=== PATIENT | male | born 1980 | race Caucasian/White ===

== ENCOUNTER 2022-02-20 09:17 | Emergency (ER) | payer OTHER, SELFPAY ==
[2022-02-20 09:35] VITALS: BP 132/82; PULSE 108; RESP 16; TEMP 36.9; O2SAT 99
--- NOTE | 2022-02-20 09:47 | ED.SKABFB ---
HPI - Skin/Abscess/Foreign Bdy General Chief complaint: Skin/Abscess/Foreign Body Stated complaint: rash/cyst Time Seen by Provider: 02/20/22 09:47 Source: patient and RN notes reviewed Mode of arrival: ambulatory Limitations: no limitations History of Present Illness HPI narrative: 41-year-old male presents to the [facility] with pain, redness, warmth and swelling to the gluteal cleft that he reports has been there for 2 days. Has a history of skin issues, has been applying steroid cream to the area for the last couple of days. Denies any fevers, abdominal pain, chest pain. Onset (ago): day(s) (2) Related Data Home Medications Medication Instructions Recorded Confirmed montelukast 10 mg tablet 10 mg PO DAILY 02/20/22 02/20/22 Review of Systems Review of Systems: All systems reviewed & are unremarkable except as noted in HPI and below Constitutional: Constitutional: Reports no additional constitutional complaints, Denies chills and Denies fever(s) Eyes: Eyes: Reports no additional eye complaints ENT: Reports system reviewed and no additional complaints, except as documented Cardiovascular: Cardiovascular: Reports no additional cardiovascular complaints Respiratory: Respiratory: Reports no additional respiratory complaints Gastrointestinal: Gastrointestinal: Reports no additional gastrointestinal complaints Musculoskeletal: Musculoskeletal: Reports no additional musculoskeletal complaints Integumentary/Breasts: Skin/Breast: Reports as per HPI Neurologic: Reports system reviewed and no additional complaints, except as documented Psychiatric: Psychiatric: Reports no additional psychiatric complaints Allergic/Immunologic: Allergic/Immunologic: Reports no additional allergic/immunologic complaints PMFSH Past Medical History Medical History (Updated 02/20/22 @ 10:04 by Alvina Fields APRN) No significant medical problems Surgical History Surgical History (Updated 02/20/22 @ 10:04 by Alvina Fields APRN) No history of previous surgery Social History Social History (Updated 02/20/22 @ 10:05 by Alvina Fields APRN) Living arrangements: with family Gender identity (if verbalized by the patient): Male Comments At the time of my signature, I reviewed and agree with the nursing past medical, surgical, social, and family history. There is no relevant family history pertinent to the patient complaint. Exam Const: General: healthy appearing, no acute distress and alert Nutritional Appearance: well nourished and obese Orientation/consciousness: patient oriented x3 Limitations: no limitations HENMT: Head: normal to inspection Ears: external ears normal Eyes: General: appearance normal, both eyes and all related structures Pupils: Equal, round and reactive pupils present Neck: Neck: normal visual inspection, no lymphadenopathy and no meningeal signs Chest: Chest palpation & inspection: normal inspection of the chest Resp: Effort & Inspection: normal respiratory effort and no use of accessory muscles Auscultation: clear to auscultation bilaterally, no crackles, no rales, no rhonchi and no wheezes Cardio: Rate: regular rate Rhythm: regular rhythm GI: GI Palp: Yes Soft to palpation and No Tenderness to palpation present (GI) Back/Spine/Pelvis: Cervical Spine: normal cervical lordosis Thoracic/Lumbar Spine: thoracic and lumbar spine normal to inspection Skin: General skin exam: normal color Rashes: no rashes Wounds: no wounds Full body images: 1. Gluteal cleft abscess, concern for pilonidal cyst. Measures 11 cm by approximately 10 cm. Area is fluctuant, erythema and hot to touch. Neuro: General: patient oriented x3, moves all extremities, no meningeal signs and no focal motor deficits Cranial nerves: Yes Equal, round and reactive pupils present Speech: normal speech Gait exam (Neuro): Normal gait present Extrem: General: normal to inspection, full ROM and capillary refill normal
== END 2022-02-20 10:05 | disposition short-term general hospital (02) ==
PROVIDERS: Emergency Provider Nurse Practitioner
DX: L02.31 Cutaneous abscess of buttock (principal); J45.909 Unspecified asthma, uncomplicated
CPT/HCPCS: 99202; G0463

== ENCOUNTER 2022-02-20 10:21 | Emergency (ER) | payer OTHER, SELFPAY ==
--- NOTE | ~2022-02-20 | CT_ITS ---
EXAMINATION: CT abdomen pelvis w con DATE: 02/20/2022 12:27 INDICATION: Pilonidal cyst. TECHNIQUE: Computed tomography (CT) of the abdomen and pelvis was performed with 100 mL Omnipaque 350 intravenous contrast. Automated exposure control and iterative reconstruction technique were employe d. The dose-length product was 1543.93 mGy-cm. COMPARISON: None. FINDINGS: The visualized portions of the lung bases demonstrate minimal atelectasis. No pleural effus ion. The heart size is normal. No pericardial effusion. The liver, gallbladder, spleen, pancreas, and adrenal glands are normal. There are cysts in the kidneys measuring up to 18 mm on the right. There are no dilated loops of bowel. The appendix is normal. There are no pathologically enlarged lymph nod es. There is no free intraperitoneal fluid. There is subcutaneous fat stranding in the medial buttock s bilaterally. No abscess. There is mild lumbar spondylosis. IMPRESSION: 1. Subcutaneous fat stranding in the medial buttocks bilaterally, consistent with cellulitis. No absc ess. Reviewed, dictated and finalized at location A. IMPRESSION: 1. Subcutaneous fat stranding in the medial buttocks bilaterally, consistent wi th cellulitis. No abscess.
[2022-02-20 10:32] VITALS: BP 127/82; PULSE 109; RESP 20; TEMP 36.8; O2SAT 100
--- NOTE | 2022-02-20 10:56 | ED.SKABFB ---
HPI - Skin/Abscess/Foreign Bdy General Chief complaint: Skin/Abscess/Foreign Body Stated complaint: RECTAL SWELLING ?ABSCESS Time Seen by Provider: 02/20/22 10:30 History of Present Illness HPI narrative: 41-year-old male presents to the emergency room today for swelling and pain above the rectum. Area started to have swelling yesterday. He says that he started having pain in the area yesterday morning but did not notice the swelling, so he went to the chiropractor to get an adjustment. Later on in the day the pain started to come back and that is when he noticed that he was having the tenderness and swelling to the mid buttock area just above the rectum. He denies any previous history of pilonidal cyst. He has had other dermoid cysts in other areas removed previously. Denies any history of MRSA. He denies any fever or chills. No nausea or vomiting. He does have a history of a fungal infection in the skin fold folds of the groin area that he has been using a topical cream for. Related Data Home Medications Medication Instructions Recorded Confirmed montelukast 10 mg tablet 10 mg PO DAILY 02/20/22 02/20/22 Allergies Allergy/AdvReac Type Severity Reaction Status Date / Time No Known Allergies Allergy Verified 02/20/22 10:36 Review of Systems Review of Systems: CONSTITUTIONAL: Denies fever, chills, or sweats. EYES: Denies visual changes, redness, or discharge. ENT: Denies rhinorrhea, congestion, sore throat, or otalgia. CARDIOVASCULAR: Denies chest pain, palpitations, or edema. RESPIRATORY: Denies cough or dyspnea. GASTROINTESTINAL: Denies abdominal pain, nausea, vomiting, or diarrhea. GENITOURINARY: Denies dysuria or hematuria. SKIN: As per HPI MUSCULOSKELETAL: Denies back pain, joint pain, or myalgia. NEUROLOGIC: Denies headache, numbness, dizziness, or weakness. PSYCHIATRIC: Denies anxiety or depression. [facility] Past Medical History Medical History No significant medical problems Surgical History Surgical History No history of previous surgery Social History Social History Gender identity (if verbalized by the patient): Male Exam Narrative: GENERAL: Well-appearing, well-nourished, and in no acute distress. HEAD: Normocephalic, atraumatic. NECK: Supple. No adenopathy or masses. No carotid bruits or JVD CHEST: Clear to auscultation. No respiratory distress. No wheezes rales or rhonchi HEART: Regular rate and rhythm. No murmur heard. Normal peripheral pulses. ABDOMEN: Soft, nontender, nondistended, normal active bowel sounds. EXTREMITIES: Normal range of motion. No edema. SKIN: Erythema and swelling with skin thickening noted to the intragluteal cleft above the rectum. Central area of drainage noted, purulence small amount NEURO: No focal deficits. Alert and oriented x3. PSYCH: Normal mood and affect. Course Vital Signs Vital signs: Vital Signs Temperature 36.8 C 02/20/22 10:32 Pulse Rate 109 H 02/20/22 10:32 Respiratory Rate 20 02/20/22 10:32 Blood Pressure 127/82 02/20/22 10:32 Pulse Oximetry 100 02/20/22 10:32 Oxygen Delivery Room Air 02/20/22 10:32 Temperature 36.8 C 02/20/22 10:32 Pulse Rate 108 H 02/20/22 13:07 Respiratory Rate 14 02/20/22 13:07 Blood Pressure 142/91 H 02/20/22 13:07 Pulse Oximetry 99 02/20/22 13:07 Oxygen Delivery Room Air 02/20/22 10:32 MDM - Skin/Abscess/Foreign Bdy Differential Diagnosis Differential diagnosis: Likely abscess of skin or subcutaneous tissue, cellulitis and other (pilonidal cyst or abscess) Lab Data Attestation: I reviewed the patient's lab results. Result diagrams: 02/20/22 11:20 02/20/22 11:20 Labs: Lab Results 02/20/22 02/20/22 Range/Units 11:20 11:20 WBC 13.9 H (4.5-10.0) K/mm3 RBC 4.6
[2022-02-20] MEDS: MORPHINE SULFATE (*CRX) 4 MG/ML INJ IV PUSH (11:19)
[2022-02-20] MEDS: ONDANSETRON INJ 4 MG/2 ML VIAL IV PUSH (11:19)
[2022-02-20 11:26] LABS: Basophils Percent Auto 0.3 % (0.2-1.2); Eosinophils Percent Auto 0.1 % (0-4.4); Hematocrit 42.7 % (42.0-52.0); Hemoglobin 14.1 g/dL (14.0-18.0); Immature Granulocyte Absolute 0.06 K/mm3 (0.00-0.031); Immature Granulocyte Percent A 0.4 % (0-0.5); Lymphocytes Absolute Auto 0.76 K/mm3 (0.9-3.2); Lymphocytes Percent Auto 5.5 % (18.3-44.2); Mean Corpuscular Hemoglobin 30.3 pg (26-34); Mean Corpuscular Volume 91.6 fl (80-100); Mean Platelet Volume 10.8 fl (7.4-10.4); Monocytes Absolute Auto 1.3 K/mm3 (0.1-0.6); Monocytes Percent Auto 9.6 % (2.6-8.5); Neutrophils Absolute Auto 11.7 K/mm3 (1.3-6.7); Neutrophils Percent Auto 84.1 % (45.5-73.1); Platelet Count Result 205 k/mm3 (150-375); Red Blood Count 4.66 M/mm3 (4.6-6.20); Red Cell Distribution Width 12.5 % (11.5-14.5); White Blood Count 13.9 K/mm3 (4.5-10.0)
[2022-02-20 11:38] LABS: Alanine Aminotransferase 28 U/L (6-50); Albumin Level 4.3 g/dL (3.5-5.1); Alkaline Phosphatase 91 U/L (38-126); Anion Gap 12 mmol/L (8-16); Aspartate Amino Transferase 23 U/L (17-59); Blood Urea Nitrogen 8 mg/dL (9-20); Calcium 8.9 mg/dL (8.4-10.2); Carbon Dioxide 24 mmol/L (22-30); Chloride 101 mmol/L (98-107); Estimated Glomerular Filt Rate > 60; Glucose 109 mg/dL (65-110); Potassium 4.1 mmol/L (3.4-5.0); Sodium 137 mmol/L (137-145)
[2022-02-20 12:00] VITALS: BP 139/85; PULSE 111; RESP 20; O2SAT 100
[2022-02-20 13:07] VITALS: BP 142/91; PULSE 108; RESP 14; O2SAT 99
== END 2022-02-20 13:50 | disposition home or self-care (01) ==
PROVIDERS: Emergency Provider Nurse Practitioner Family; PCP Physician Assistant
DX: L03.317 Cellulitis of buttock (principal)
CPT/HCPCS: 36415; 74177; 80053; 85025; 87070; 87205; 96365; 96375; 99284; J0696; J2270; J2405; Q9967